=== PATIENT | female | born 1945 | race Caucasian/White ===

== ENCOUNTER 2017-10-03 09:34 | Outpatient (CLI) | payer MEDICARE ==
--- NOTE | 2017-10-03 12:59 | CT ---
CT ABDOMEN AND PELVIS WITH IV CONTRAST: Multiple axial tomograms were obtained through the abdomen and pelvis with IV enhancement. Oral cont rast was administered. INDICATION: Lower abdominal pain. History of diverticulitis. Blood in stool. COMPARISON: Comparison is made to CT of 03/19/15. FINDINGS: Lung bases clear. The liver, spleen, and pancreas are unremarkable. Adrenal glands unremarkable. Review of the kidneys reveals a 3 mm calculus in the mid pole collecting structures of the right kidn ey. A small 1 cm cyst lower pole right kidney. There is a 4-5 mm calculus lower pole collecting structures of the left kidney. No hydronephrosis and no evidence of ureteral calculus. Urinary bladder is contracted and not well e valuated. Small bowel loops appear normal. Scattered stool and gas throughout the colon. Diverticulosis of th e sigmoid colon. There is wall thickening in the sigmoid colon. No significant inflammatory change is seen by CT. No extraluminal fluid or abscess. No extraluminal gas. Images through the pelvis sh ow evidence of hysterectomy. Aorta is normal caliber. No adenopathy. IMPRESSION: 1. Bilateral nonobstructing renal calculi. No evidence of ureteral calculus or hydronephrosis. 2. Sigmoid diverticulosis. There is mural thickening and possible luminal narrowing, although there is no contrast at this location and the colon wall is suboptimally evaluated. There is no surroundi ng inflammatory change by CT. No fluid or abscess identified. POS: [facility]
== END 2017-10-03 09:35 | disposition home or self-care (01) ==
LOC: SCSCT 09:34
PROVIDERS: ATTEND Internal Medicine Gastroenterology
DX: R10.30 Lower abdominal pain, unspecified (principal); K92.1 Melena; N20.0 Calculus of kidney; K57.30 Diverticulosis of large intestine without perforation or abscess without bleeding; K63.89 Other specified diseases of intestine
CPT/HCPCS: 74177; 82565

== ENCOUNTER 2021-07-13 07:53 | Emergency (ER) | payer OTHER, MEDICARE ==
[2021-07-13 08:49] LABS: #Basophils 0.1 thou/uL (0.0-0.2); #Eosinphils 0.1 thou/uL (0.0-0.7); #Lymphocytes 1.7 thou/uL (1.20-3.40); #Monocytes 0.9 thou/uL (0.11-0.59); %Basophils 0.5 % (0.0-1.0); %Eosinophils 0.5 % (0.0-10.0); %Lymphocytes 15.9 % (21.0-51.0); %Monocytes 8.7 % (0.0-10.0); %Neutrophils 74.4 % (42.0-75.0); Hemoglobin 14.8 g/dL (12.0-16.0); Mean Corpuscular HGB CONC 34.3 g/dL (32.0-36.0); Mean Corpuscular Hemoglobin 34.3 pg (27.0-31.0); Mean Corpuscular Volume 99.9 fL (78.0-98.0); Mean Platelet Volume 8.2 fL (7.4-10.4); Platelet Count 267 thou/uL (130-400); RBC Distribution Width 11.9 % (11.5-14.5); Red Blood Cell (RBC) Count 4.33 mill/uL (4.20-5.40); White Blood Cell (WBC) Count 10.8 thou/uL (4.8-10.8)
[2021-07-13 09:06] LABS: ALT (SGPT) 30 U/L (8-55); AST (SGOT) 30 U/L (5-34); Albumin 3.9 g/dL (3.4-4.8); Alkaline Phosphatase 75 U/L (40-110); Anion Gap 10 mmol/L (10-20); BUN (Urea Nitrogen) 13 mg/dL (9.8-20.1); Bilirubin, Total 0.7 mg/dL (0.2-1.2); Calc. Creatinine Clearance 0 mL/min (70-130); Calcium 9.4 mg/dL (7.8-10.44); Carbon Dioxide 27 mmol/L (23-31); Chloride 107 mmol/L (98-107); Globulin 2.7 g/dL (2.4-3.5); Glucose 116 mg/dL (83-110); Lipase 21 U/L (8-78); Potassium 4.4 mmol/L (3.5-5.1); Protein, Total 6.6 g/dL (5.8-8.1); Sodium 140 mmol/L (136-145)
[2021-07-13] MEDS ORDERED: Metoclopramide HCl 10 MG/2 ML VIAL ONE (09:17)
[2021-07-13] MEDS ORDERED: diphenhydrAMINE 50 MG/ML VIAL ONE (09:17)
[2021-07-13] MEDS ORDERED: Acetaminophen 500 MG TAB ONE (11:08)
== END 2021-07-13 11:47 | disposition home or self-care (01) ==
LOC: ERS 07:53
DX: S00.03XA Contusion of scalp, initial encounter (principal); R29.700 NIHSS score 0; I49.3 Ventricular premature depolarization; E03.9 Hypothyroidism, unspecified; K21.9 Gastro-esophageal reflux disease without esophagitis; W01.198A Fall on same level from slipping, tripping and stumbling with subsequent striking against other object, initial encounter; Z87.891 Personal history of nicotine dependence; Z79.899 Other long term (current) drug therapy; Z85.828 Personal history of other malignant neoplasm of skin
CPT/HCPCS: 36415; 70450; 71045; 80053; 83690; 84484; 85025; 93005; 96365; 96375; J1200; J2765

== ENCOUNTER 2021-08-12 07:51 | Day surgery (SDC) | payer MEDICARE ==
[2021-08-08 13:36] VITALS: BMI 25.2
[2021-08-12] MEDS ORDERED: PROPOFOL 200 MG/20 ML VIAL ONE (10:25)
== END 2021-08-12 11:41 | disposition home or self-care (01) ==
LOC: SDC 07:51
PROVIDERS: ATTEND Internal Medicine Cardiovascular Disease
PROC: B24BZZ4 Ultrasonography of Heart with Aorta, Transesophageal (ICD-10-PCS; principal; 2021-08-12)
DX: I08.3 Combined rheumatic disorders of mitral, aortic and tricuspid valves (principal); I11.9 Hypertensive heart disease without heart failure; I70.0 Atherosclerosis of aorta; E03.9 Hypothyroidism, unspecified; K21.9 Gastro-esophageal reflux disease without esophagitis; M81.0 Age-related osteoporosis without current pathological fracture; Z87.891 Personal history of nicotine dependence; Z79.899 Other long term (current) drug therapy; Z88.2 Allergy status to sulfonamides; Z88.5 Allergy status to narcotic agent; Z91.041 Radiographic dye allergy status
CPT/HCPCS: 93312; J2704

== ENCOUNTER 2022-03-28 09:24 | Outpatient (CLI) | payer MEDICARE | END 2022-03-28 09:25 | disposition home or self-care (01) | LOC: BICMAMMO 09:24 | PROVIDERS: ATTEND Family Medicine | DX: Z12.31 Encounter for screening mammogram for malignant neoplasm of breast (principal); M81.0 Age-related osteoporosis without current pathological fracture; M85.851 Other specified disorders of bone density and structure, right thigh; M85.852 Other specified disorders of bone density and structure, left thigh; Z91.89 Other specified personal risk factors, not elsewhere classified | CPT/HCPCS: 77063; 77067; 77080 ==

== ENCOUNTER 2022-06-12 06:51 | Day surgery (SDC) | payer MEDICARE ==
[2022-06-09 15:25] VITALS: BMI 24.7
[2022-06-12] MEDS ORDERED: CEFAZOLIN 2 GM VIAL ONE (09:02)
[2022-06-12] MEDS ORDERED: Ioversol 68 % 50 ML VIAL ONE (09:03)
[2022-06-12] MEDS ORDERED: Sodium Chloride 0.9% 100 ML ONE (09:03)
[2022-06-12] MEDS ORDERED: FENTANYL 50 MCG/ML 1 ML VIAL ONE ×4 (09:10→11:05)
[2022-06-12] MEDS ORDERED: Dexamethasone 20 MG/5 ML VIAL ONE (09:30)
[2022-06-12] MEDS ORDERED: Ondansetron PF 4 MG/2 ML Vial ONE (09:30)
[2022-06-12] MEDS ORDERED: PROPOFOL 200 MG/20 ML VIAL ONE (09:30)
[2022-06-12] MEDS ORDERED: Ketorolac Tromethamine 30 MG/ML VIAL ONE (09:30)
== END 2022-06-12 11:58 | disposition home or self-care (01) ==
LOC: SDC 06:51
PROVIDERS: ATTEND Urology
PROC: 0TC78ZZ Extirpation of Matter from Left Ureter, Via Natural or Artificial Opening Endoscopic (ICD-10-PCS; principal; 2022-06-12)
PROC: 0T778DZ Dilation of Left Ureter with Intraluminal Device, Via Natural or Artificial Opening Endoscopic (ICD-10-PCS; 2022-06-12)
DX: N20.1 Calculus of ureter (principal); Z79.890 Hormone replacement therapy; Z79.899 Other long term (current) drug therapy; Z88.2 Allergy status to sulfonamides; Z88.5 Allergy status to narcotic agent; Z91.041 Radiographic dye allergy status
CPT/HCPCS: 52356; 74420; 82365; C1769; C1874; J3010; 88300; J3490; Q9967

== ENCOUNTER 2025-02-27 13:28 | Outpatient (CLI) | payer MEDICARE ==
[2025-02-27 14:01] LABS: Estimated GFR - POC 65.0
[2025-02-27] MEDS ORDERED: Iopamidol 370 76% 100 ML VIAL ONE (15:37)
== END 2025-02-27 13:29 | disposition home or self-care (01) ==
LOC: CT 13:28
PROVIDERS: ATTEND Internal Medicine Gastroenterology
DX: R63.4 Abnormal weight loss (principal); N20.0 Calculus of kidney; K57.30 Diverticulosis of large intestine without perforation or abscess without bleeding; K63.89 Other specified diseases of intestine
CPT/HCPCS: 36415; 74177; 82565

== ENCOUNTER 2025-04-07 11:17 | Outpatient (CLI) | payer MEDICARE | END 2025-04-07 11:18 | disposition home or self-care (01) | LOC: SCSRAD 11:17 | PROVIDERS: ATTEND Family Medicine | DX: M53.3 Sacrococcygeal disorders, not elsewhere classified (principal); M47.816 Spondylosis without myelopathy or radiculopathy, lumbar region | CPT/HCPCS: 72100 ==

== ENCOUNTER 2025-04-30 13:11 | Outpatient (CLI) | payer MEDICARE | END 2025-04-30 13:12 | disposition home or self-care (01) | LOC: BICMAMMO 13:11 | PROVIDERS: ATTEND Family Medicine | DX: Z12.31 Encounter for screening mammogram for malignant neoplasm of breast (principal); Z78.0 Asymptomatic menopausal state; M81.0 Age-related osteoporosis without current pathological fracture; M85.851 Other specified disorders of bone density and structure, right thigh; M85.852 Other specified disorders of bone density and structure, left thigh; Z91.89 Other specified personal risk factors, not elsewhere classified | CPT/HCPCS: 77063; 77067; 77080 ==